=== PATIENT | male | born 1970 ===

== ENCOUNTER 2021-03-25 14:57 | Emergency (ER) | payer BC ==
[~2021-03-25] VITALS: Ht 177.8 cm; Wt 88.5 kg
[2021-03-25 15:50] LABS: Basophils # (auto) 0.1 10 ^3/uL (0-0.2); Basophils % (auto) 0.8 % (0.0-2.0); Eosinophils # (auto) 0 10 ^3/uL (0-0.8); Eosinophils % (auto) 0.2 % (0.0-7.0); Hematocrit 46.2 % (41.0-53.0); Hemoglobin 15.7 g/dL (13.5-17.5); Lymphocytes # (auto) 1.5 10 ^3/uL (0.4-5.4); Lymphocytes % (auto) 9.4 % (10.0-50.0); Mean Corpuscular Hemoglobin 30.3 pg (28.0-32.0); Mean Corpuscular Hgb Conc. 34.1 g/dL (32.0-36.0); Mean Corpuscular Volume 88.9 fL (80.0-100.0); Monocytes # (auto) 0.9 10 ^3/uL (0-1.3); Monocytes % (auto) 5.7 % (0.0-12.0); Neutrophils # (auto) 13.6 10 ^3/uL (1.6-8.6); Neutrophils % (auto) 83.9 % (37.0-80.0); Red Cell Distribution Width 13.3 % (11.8-14.3); White Blood Cell 16.2 10^3/uL (4.4-10.8)
[2021-03-25 16:13] LABS: Albumin 3.9 g/dL (3.4-5.0)
[2021-03-25 16:16] LABS: BUN/Creatinine Ratio 12.4; Bilirubin, Total 0.3 mg/dL (0.2-1.0); Total Protein 7.8 g/dL (6.4-8.2)
[2021-03-25 16:57] LABS: Urine Amorphous Crystal FEW /hpf (None Seen); Urine Bacteria NONE SEEN /hpf (None Seen); Urine Blood 3+ /uL (Negative); Urine Mucus FEW (None Seen); Urine Specific Gravity 1.035 (1.001-1.035); Urine WBC 4 /hpf (0 - 3)
[2021-03-25] MEDS ORDERED: cefTRIAXone W LIDOCAINE 1 GM IM IM ONE (20:30)
[2021-03-25] MEDS ORDERED: PERCOT PO (20:32)
[2021-03-25] MEDS ORDERED: TAM04C PO (20:32)
[2021-03-25] MEDS ORDERED: ONDA-144 PO (20:32)
[2021-03-25] MEDS ORDERED: LEVO500T31 PO (20:32)
[2021-03-25] MEDS ORDERED: cefTRIAXone SOD 1,000 MG VL ONE (21:22)
[2021-03-25] MEDS ORDERED: LIDOCAINE 1% HCL (LOCAL ANESTH.) INJ 20ML MDV ONE (21:23)
[2021-03-25 21:25] VITALS: BP 135/97
== END 2021-03-25 21:38 | disposition home or self-care (01) ==
LOC: ER 14:57
DX: N39.0 Urinary tract infection, site not specified (principal); N20.0 Calculus of kidney; N12 Tubulo-interstitial nephritis, not specified as acute or chronic
CPT/HCPCS: 36415; 74176; 80053; 81001; 85025; 96372; 99284; J0696; J2001